=== PATIENT | female | born 1975 | race Caucasian/White ===

== ENCOUNTER → 2016-08-01 | Outpatient (CLI) | payer OTHER | LOC: FIMAGING 10:24 | PROVIDERS: ATTEND Midwife | DX: N92.1 Excessive and frequent menstruation with irregular cycle (principal) ==

== ENCOUNTER 2016-10-16 07:30 | Observation (INO) | payer OTHER ==
[2016-10-21] MEDS ORDERED: LR 1,000 ML IV ONE (06:30)
[2016-10-21] MEDS ORDERED: LIDOCAINE 1% 5 ML SDV ID PRN (06:30)
[2016-10-21] MEDS ORDERED: BUPIVACAINE 0.25% 30 ML SDV ONE (07:00)
[2016-10-21] MEDS ORDERED: LIDOCAINE 1% 30 ML SDV ONE (07:00)
[2016-10-21] MEDS ORDERED: VASOPRESSIN 20 UNIT/ML VIAL ONE (07:01)
[2016-10-21] MEDS ORDERED: METHYLENE BLUE 0.5% 50 MG/10 ML AMP ONE (07:01)
[2016-10-21] MEDS ORDERED: MIDAZOLAM 2 MG/2 ML VIAL ONE (07:22)
[2016-10-21] MEDS ORDERED: ceFAZolin 2 GM/DEXTROSE 100 ML IV ONE (07:30)
[2016-10-21] MEDS ORDERED: PROPOFOL/EMULSION 500 MG/50 ML BOTTLE IV ONE (07:42)
[2016-10-21] MEDS ORDERED: fentaNYL 100 MCG/2 ML INJ ONE ×2 (07:42→10:12)
[2016-10-21] MEDS ORDERED: ROCURONIUM 50 MG/5 ML VIAL ONE (07:45)
[2016-10-21] MEDS ORDERED: LIDOCAINE 2% 100 MG/5 ML SYR ONE (07:46)
[2016-10-21] MEDS ORDERED: LIDOCAINE HCL 160 MG/4 ML LTA KIT TP ONE (07:46)
[2016-10-21] MEDS ORDERED: DEXAMETHASONE 4 MG/ML VIAL ONE ×2 (07:54)
[2016-10-21] MEDS ORDERED: ONDANSETRON 4 MG/2 ML VIAL ONE (07:54)
[2016-10-21] MEDS ORDERED: SURGIFLO MATRIX KIT WITH THROMBIN TP ONE (09:36)
[2016-10-21] MEDS ORDERED: PROPOFOL 200 MG/20 ML VIAL ONE (09:39)
[2016-10-21] MEDS ORDERED: SUGAMMADEX SODIUM 200 MG/2 ML VIAL IVP ONE (09:44)
[2016-10-21] MEDS ORDERED: ONDANSETRON 4 MG/2 ML VIAL IVP PRN (09:54)
[2016-10-21] MEDS ORDERED: HYDROCODONE/APAP 5/325 TAB PO PRN (09:54)
[2016-10-21] MEDS ORDERED: LR 1,000 ML IV SCH (10:00)
--- NOTE | 2016-10-21 10:45 | GOP ---
[f rep st] OPERATIVE REPORT DATE OF OPERATION: 10/21/2016 SURGEON: Darlyn Lee MD CHARTER COACH DRIVER: Eileen Andrews MD. ANESTHESIA: General. PREOPERATIVE DIAGNOSIS: Menorrhagia. POSTOPERATIVE DIAGNOSIS: Menorrhagia. PROCEDURE PERFORMED: Laparoscopic-assisted vaginal hysterectomy, bilateral salpingectomy, and cystoscopy. FINDINGS: Normal uterus, fallopian tubes, ovaries, bilateral ureteral jets and normal bladder. SPECIMENS: Bilateral fallopian tubes, uterus, and cervix. ESTIMATED BLOOD LOSS: 100 mL. INDICATIONS: The patient is a 41-year-old female, who had previously had an endometrial ablation for menorrhagia which worked for a few years but then began to have daily bleeding and pain, and patient desired definitive surgical management. DESCRIPTION OF PROCEDURE: The patient was taken to the operating room, where she was prepped and draped in normal sterile fashion in the low dorsal lithotomy position. A surgical time-out was performed verifying the patient's name, date of , planned procedure, and site. The patient received 2 g of Ancef preoperatively. The patient had a Yi placed in her bladder prior to the procedure. A bilateral speculum was placed in the patient's vagina. The anterior aspect of the cervix was grasped with a single-tooth tenaculum, and the uterine manipulator was placed into the uterine canal. The gloves were changed, and the umbilicus was injected with 0.25% Marcaine. A 10 mm incision was made with an 11 blade scalpel. The subcutaneous tissue was dissected down to the fascia. The fascia was tented up with the Jolanta clamps and incised with a 15 blade scalpel. The peritoneum was identified and entered in bluntly. The fascia was tagged with an 0 Vicryl bilaterally. The Darlin port was placed into the patient's pelvic cavity. The abdomen was insufflated. Approximately 5 cm to the patient's right and 2 cm caudad, the skin was transilluminated, injected with 0.25% Marcaine, and a 5 mm incision was made with an 11 blade scalpel. The port was placed into the patient's pelvic cavity. The same procedure was performed on the patient's left. The patient was placed in Trendelenburg. The right fallopian tube was grasped. The mesosalpinx was cauterized and incised to the uterine ovarian ligament. The uterine ovarian ligament was cauterized and incised. The round ligament was cauterized and incised. The bladder flap was created. The same procedure was performed on the patient's left side, and the bladder flap was created. The bladder was dissected gently down with the Endo Kittner. The vaginal portion then took place. The patient was placed in Trendelenburg. A short weighted speculum was placed in the patient's vagina. The cervix was grasped with a French tenaculum x2. The cervix was injected with dilute vasopressin circumferentially. The vaginal epithelium was incised with the 10 blade scalpel. The posterior peritoneum was identified and entered in bluntly. The long weighted speculum was placed in the posterior cul-de-sac. The bladder was dissected off bluntly and with Metzenbaums off the anterior aspect of the cervix. The anterior cul-de -sac was identified and entered in. A [place] retractor was placed in the anterior cul-de-sac pushing the bladder away from the cervix. The uterine ovarian ligaments were bilaterally clamped, cut, and suture ligated, and the uterus was removed. The vaginal cuff was reapproximated with 0 Vicryl in a running, locked fashion. A cystoscopy was performed to ensure there were bilateral ureteral jets and no bladder injury, which there were bilateral ureteral jets and no ureteral injury. The gowns and gloves were changed and the laparoscopic portion was resumed. Visualization of the pelvic cavity was normal. The patient had slight oozing at the vaginal cuff that was made hemostatic with Surgiflo and cautery. All counts were correct x2. The patient was stable to recovery room. COMPLICATIONS: None. OUTCOME: Stable to recovery room. /[id number]/MODL MTDD
[2016-10-21] MEDS ORDERED: KETOROLAC 30 MG/1 ML SDV ONE (11:24)
[2016-10-21] MEDS: KETOROLAC 30 MG/1 ML SDV IVP SCH ×3 (11:30→23:15)
--- NOTE | 2016-10-21 14:52 | POSTOPPROG ---
Post Op Note Date of Operation: 10/21/16 Surgeon: Darlyn Salgado [employer] P[employer] Covering Supervisor: Eileen Andrews Anesthesiologist: Chester Paredes Anesthesia: GET(General Endotracheal) Pre-op Diagnosis: menorrhagia, pelvic pain Post-op Diagnosis: same Indication: menorrhagia and pelvic pain Procedure: LAVH/bilateral salpingectomy/cystoscopy Findings: nml uterus, ovaries, fallopian tubes and bilateral ureteral jets Inf/Abcess present in the surg proc area at time of surgery?: No Depth: Deep Incisional (Fascial) EBL: 50-100 Complications: none Specimen(s): uterus, bilateral fallopian tubes, cervix
[2016-10-21 21:33] VITALS: RESP 16
[2016-10-22] MEDS: KETOROLAC 30 MG/1 ML SDV IVP SCH (05:29)
[2016-10-22 05:53] LABS: % IMMATURE GRANULYOCYTES 0.4 % (0.0-1.1); ABSOLUTE IMMATURE GRANULOCYTES 0.05 10^3/uL (0.00-0.10); ADD DIFF? NO; ADD MORPH? NO; ADD SCAN? NO; ATYPICAL LYMPHOCYTE FLAG 0 (0-99); FRAGMENT RBC FLAG 10 (0-99); HEMATOCRIT 38.8 % (38.0-47.0); HEMOGLOBIN 13.5 g/dL (12.6-16.3); LEFT SHIFT FLG 0 (0-99); LIPEMIA HEMOLYSIS FLAG 90 (0-99); MEAN CELL HEMOGLOBIN 31.3 pg (27.9-34.1); MEAN CELL HEMOGLOBIN CONCENTR. 34.8 g/dL (32.4-36.7); MEAN PLATELET VOLUME 8.7 fL (8.7-11.7); PLATELET CLUMPS FLAG 10 (0-99); PLATELET COUNT 223 10^3/uL (150-400); RED BLOOD CELL COUNT 4.31 10^6/uL (4.18-5.33); RED CELL DISTRIBUTION WIDTH 11.8 % (11.5-15.2)
--- NOTE | 2016-10-22 08:04 | SOAPPROG ---
SOAP Progress Note Assessment/Plan: Assessment: 41 yo female s/p LAVH/bilateral salpingectomy, pod 1, doing well. Plan: 10/22/16 08:03 Routine postop care. Anticipate discharge home this morning. Subjective: 41 yo female s/p LAVH/bilateral salpingectomy, pod 1, doing well. Pain is well controlled, ambulating, voiding, tolerating oral intake. Objective: Vital Signs Temp Pulse Resp BP Pulse Ox 36.8 C 74 16 117/72 93 10/22/16 05:30 10/22/16 05:30 10/22/16 05:30 10/22/16 05:30 10/22/16 05:30 Laboratory Results 10/22/16 05:30 10/21/16 10/22/16 10/23/16 05:59 05:59 05:59 Intake Total 2650 Output Total 3650 Balance -1000 Physical Exam - Physical Exam General Appearance: no apparent distress Respiratory: lungs clear Cardiac/Chest: regular rate, rhythm Abdomen: non-tender Skin: warm/dry Extremities: non-tender Neuro/Psych: oriented x 3 ICD10 Worksheet Patient Problems: Problems Problem Status Onset S/P laparoscopic assisted vaginal hysterectomy (LAVH) Acute
[2016-10-22 08:33] VITALS: BP 123/76; PULSE 77; TEMP 98.7; O2SAT 97
[2016-10-22] MEDS ORDERED: IBUPROFEN 600 MG TAB PO SCH (09:56)
== END 2016-10-22 10:00 | disposition home or self-care (01) ==
LOC: F3N 10-21 05:53 → FOB 10-21 12:04
PROVIDERS: ADMIT Obstetrics & Gynecology; ATTEND Obstetrics & Gynecology
PROC: 0UT74ZZ Resection of Bilateral Fallopian Tubes, Percutaneous Endoscopic Approach (ICD-10-PCS; principal; 2016-10-21 07:30)
PROC: 0UTC7ZZ Resection of Cervix, Via Natural or Artificial Opening (ICD-10-PCS; principal; 2016-10-21 07:30)
PROC: 0UT9FZZ Resection of Uterus, Via Natural or Artificial Opening With Percutaneous Endoscopic Assistance (ICD-10-PCS; principal; 2016-10-21 07:30)
DX: N92.1 Excessive and frequent menstruation with irregular cycle (principal)
CPT/HCPCS: 58552; G0378; J0690; J1100; J1885; J2001; J2250; J2405; J2704; J3010; Q9968

== ENCOUNTER → 2017-06-03 | Outpatient (CLI) | payer OTHER | LOC: FIMAGING 10:14 | PROVIDERS: ATTEND Obstetrics & Gynecology | DX: Z12.31 Encounter for screening mammogram for malignant neoplasm of breast (principal) | CPT/HCPCS: G0202 ==

== ENCOUNTER → 2017-09-04 | Outpatient (CLI) | payer BC ==
[~2017-09-04] MED LIST: IOPAMIDOL (ISOVUE-300) 100 ML BTL ONE
== END ==
LOC: FIMAGING 14:44
PROVIDERS: ATTEND Internal Medicine Gastroenterology
DX: R10.12 Left upper quadrant pain (principal)
CPT/HCPCS: Q9967

== ENCOUNTER → 2018-06-04 | Outpatient (CLI) | payer BC | LOC: FIMAGING 11:18 | PROVIDERS: ATTEND Obstetrics & Gynecology | DX: Z12.31 Encounter for screening mammogram for malignant neoplasm of breast (principal) ==

== ENCOUNTER → 2018-06-16 | Outpatient (CLI) | payer BC | LOC: FIMAGING 08:38 | PROVIDERS: ATTEND Obstetrics & Gynecology | DX: N60.02 Solitary cyst of left breast (principal) ==